=== PATIENT | female | born 1985 | race Caucasian/White ===

== ENCOUNTER 2019-02-07 06:30 | Day surgery (SDC) | payer OTHER ==
[2019-02-04 18:01] VITALS: BMI 34.0
[2019-02-07] MEDS ORDERED: PROPOFOL 20 ML ONE ×3 (07:28)
[2019-02-07] MEDS ORDERED: DEXAMETHASONE SOD PHOSPHATE 4 MG/1 ML VIAL ONE (07:28)
[2019-02-07] MEDS ORDERED: MIDAZOLAM HCL 2 MG/2 ML SINGLE DOSE VIAL ONE (07:28)
--- NOTE | 2019-02-07 08:04 | HP ---
Admitting History and Physical - Admission Chief Complaint: DUB/HMB History of Present Illness: 33yo here for HSC myomectomy. Patient presented to PCP with DUB/ menorrhagia and pain. Sonogram showed 3cm submucosal fibroid Pt declined medical management and wanted to proceed with hysteroscopic myomectomy. 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: Alzheimer's, CVA, Dementia, Migraine, Multiple Sclerosis, Peripheral Neuropathy, Parkinson's, Seizure, Syncope, TIA, Vertigo, Other Cardiovascular: No: AFIB, Aneurysm, Aortic Insufficiency, Aortic Stenosis, CAD, CHF, Deep Vein Thrombosis, HTN, Hyperlipdemia, GA, Mitral Insufficiency, Mitral Stenosis, Murmur, Pulmonary Hypertension, Other Pulmonary: No: Asthma, Bronchitis, Cancer, COPD, O2 Dependent, Pneumonia, Previously Intubated, Pulmonary Embolus, Pulmonary Fibrosis, Sleep Apnea, Other ...LMP: 01/10/19 ...: No Heme/Onc: No: Anemia, B12 Deficiency, Bleeding Disorder, Cancer, Current Chemotherapy, Current Radiation Therapy, Hemochromatosis, Hypercoaguable State, Myeloproliferative Synd, Sickle Cell Disease, Sickle Cell Trait, Thrombocytopenia, Other Infectious Disease: No: AIDS, C-Diff, Herpes Zoster, HIV, MRSA, STD's, Tuberculosis, VREF, Other Psych: No: Addictions, Anxiety, Bipolar, Depression, Panic, Psychosis, Schizophrenia, Other Musculoskeletal: No: Bursitis, Chronic low back pain, Hemiparesis, Hemiplegia, Osteoarthritis, Paraplegia, Other Rheumatology: No: Fibromyalgia, Gout, Lupus, Rheumatoid Arthritis, Sarcoidosis, Vasculitis, Other ENT: No: Allergic Rhinitis, Sinusitis, Other - Past Surgical History Past Surgical History: Yes: None - Smoking History Smoking history: Never smoked Have you smoked in the past 12 months: No - Alcohol/Substance Use Hx Alcohol Use: Yes (socially) - Social History Usual Living Arrangement: Yes: With Significant Other ADL: Independent History of Recent Travel: No Home Medications - Allergies Allergies/Adverse Reactions: Allergies Allergy/AdvReac Type Severity Reaction Status Date / Time No Known Drug Allergies Allergy Verified 02/07/19 06:57 - Home Medications Home Medications: Ambulatory Orders NK [No Known Home Medication] 02/04/19 Review of Systems - Review of Systems Constitutional: denies: No Symptoms, Chills, Diaphoresis, Fever, Lethargy, Loss of Appetite, Malaise, Night Sweats, Unintentional Wgt. Loss, Weakness, Other Eyes: denies: No Symptoms, Blind Spots, Blurred Vision, Double Vision, Eye Pain , Floaters, Photophobia, Recent Change in Vision, Other HENT: denies: No Symptoms, Difficult Swallowing, Ear Discharge, Ear Pain, Epistaxis, Gingival Bleeding, Hearing Loss, Mouth Swelling, Nasal Congestion, Ocular Prosthesis, Throat Pain, Toothache, Ringing in Ears, Other Neck: denies: No Symptoms, Decreased ROM, Lumps, Pain on Movement, Stiffness, Swollen Glands, Tenderness, Other Respiratory: denies: No Symptoms, Cough, Exercise Intolerance, Hemoptysis, Orthopnea, PND, Snoring, SOB, SOB on Exertion, Wheezing, Other Gastrointestinal: denies: No Symptoms, Abdominal Pain, Bloating, Constipation, Diarrhea, Dysphagia, Indigestion, Melena, Nausea, Rectal Bleeding, Vomiting, Vomiting Blood, Other Genitourinary: reports: Vaginal Bleeding Breasts: denies: No Symptoms Reported, See HPI, Breast Implants, Discharge from Nipple, Lumps, Pain, Skin Changes, Other Physical Examination Vital Signs: Vital Signs Temperature 98.2 F 02/07/19 06:55 Pulse Rate 75 02/07/19 06:55 Respiratory Rate 20 02/07/19 06:55 Blood Pressure 125/82 02/07/19 06:55 O2 Sat by Pulse Oximetry (%) 99 02/07/19 06:54 Constitutional: Yes: Well Nourished, No Distress, Calm Eyes: Yes: WNL, Conjunctiva Clear, EOM Intact HENT: Yes: WNL, Atraumatic, Normocephalic Neck: Yes: WNL, Supple, Trachea Midline Cardiovascular: Yes: WNL, Regular Rate and Rhythm Respiratory: Yes: WNL, Regular, CTA Bilaterally Gastrointestinal: Yes: WNL, Normal Bowel Sounds Musculoskeletal: Yes: WNL Extremities: Yes: WNL Edema: No Integumentary: Yes: WNL Neurological: Yes: WNL, Alert, Oriented ...Motor Strength: WNL Psychiatric: Yes: WNL Imaging - Results Ultrasound: Report Reviewed Problem List - Problems (1) Fibroids, submucosal Code(s): D25.0 - SUBMUCOUS LEIOMYOMA OF UTERUS Assessment/Plan 33yo with DUB/HMB here for [facility] myomectomy. Patient declined medical management Nature of the procedure including risk (bleeding, perforation, fluid overload and inability to complete procedure 2/2 excessive fluid absorption) discussed with patient in Romanian. Postoperative expectations reviewed, including pain management (Ibuprofen) All questions answered; consent obtained Proceed to OR for HSC myomectomy Margo Jeronimo MD
[2019-02-07] MEDS ORDERED: KETOROLAC TROMETHAMINE 30 MG/1 ML VIAL ONE (08:25)
[2019-02-07] MEDS ORDERED: ONDANSETRON 4 MG/2 ML VIAL IVPUSH PRN (08:38)
[2019-02-07] MEDS ORDERED: oxyCODONE HCL 5 MG TABLET PO PRN ×2 (08:38)
[2019-02-07] MEDS ORDERED: ACETAMINOPHEN 1000 MG/100 ML VIAL (NON FORMULARY) IVPB ONE (08:42)
[2019-02-07] MEDS ORDERED: LACTATED RINGERS SOLUTION 1,000 ML IV SCH (08:45)
--- NOTE | 2019-02-07 11:06 | OP ---
Operative Note - Note: Operative Date: 02/07/19 Pre-Operative Diagnosis: Dysfunctional Uterine Bleeding Operation: Hysteroscopic Myomectomy, Dilation & Curretage Findings: Anterior Type II submucosal fibroid Normal ostia bilaterally Normal cervix Post-Operative Diagnosis: Same as Pre-op Surgeon: Margo Jeronimo Anesthesia: General Estimated Blood Loss (mls): 50 Drains, Volume Out (mls): 460 (Fluid Deficit) Operative Report Dictated: Yes
[2019-02-07] MEDS ORDERED: oxyCODONE HCL 5 MG TABLET ONE (11:09)
[2019-02-07] MEDS ORDERED: oxyCODONE HCL 5 MG TABLET PO ONE (11:10)
[2019-02-07 12:07] VITALS: BP 116/70; PULSE 70; TEMP 98
--- NOTE | 2019-02-08 16:19 | PATH ---
Surgical Pathology Report Patient Name: NIKI MONTANO [facility]. Rec. #: [id number] /Age/Gender: 1985 (Age: 33) / F Account: [id number] Location: [facility] Taken: 02/07/2019 Received: 02/07/2019 Reported: 02/08/2019 Physicians: Margo Jeronimo Specimen(s) Received A: UTERINE FIBROIDS B: ENDOMETRIAL CURETTINGS Clinical History Dysfunctional uterine bleeding Final Diagnosis A. UTERINE FIBROIDS, HYSTEROSCOPIC MYOMECTOMY: 9 G, FIBROMUSCULAR TISSUE WITH ENTRAPPED ENDOMETRIAL TISSUE CONSISTENT WITH ADENOMYOSIS, FIBROMUSCULAR TISSUE, SECRETORY ENDOMETRIUM, AND SCANT ENDOCERVICAL TISSUE. B. ENDOMETRIAL CURETTINGS, DILATION AND CURETTAGE: SECRETORY ENDOMETRIUM AND FIBROMUSCULAR TISSUE. Electronically Signed Gabby Pickering M.D. Gross Description A. Received in formalin labeled "uterine fibroids," is a 9 g, 6.3 x 5.0 x 0.6 cm aggregate of koenig, irregular to rubbery portions of tissue, consistent with morcellated myoma. The specimen is entirely submitted in 6 cassettes. B. Received in formalin labeled "endometrial curetting," is a 3.5 x 2.2 x 0.3 cm aggregate of koenig-brown soft tissue fragments admixed with blood clot. The formalin is filtered and the specimen is entirely submitted in 2 cassettes. /02/07/2019 saudi/02/07/2019
--- NOTE | 2019-02-14 19:17 | OP ---
DATE OF OPERATION: 02/07/2019 PREOPERATIVE DIAGNOSIS: Dysfunctional uterine bleeding, submucosal fibroid. POSTOPERATIVE DIAGNOSIS: Dysfunctional uterine bleeding, submucosal fibroid. OPERATION: Hysteroscopic myomectomy, dilation and curettage. SURGEON: Wu Jiang MD ANESTHESIA: General. ESTIMATED BLOOD LOSS: 50. FLUID DEFICIT: 460. URINE OUTPUT: Not measured. COMPLICATIONS: None. FINDINGS: Anterior type 2 submucosal fibroid. Normal ostia bilaterally. Normal cervix. DESCRIPTION OF PROCEDURE: After the appropriate consents were signed, the patient was taken to the operating room where general anesthesia was administered. She was placed in dorsal lithotomy position. Surgical field was prepped and draped in the normal sterile fashion. A sterile speculum was entered into the vagina with good visualization of the cervix. The anterior lip of the cervix was grasped with a single-tooth tenaculum. The cervix was then dilated with the Fonseca dilator up to 24 to accommodate the hysteroscope. The hysteroscope until fluid distention was inserted through the cervix, which appeared normal into the endometrial cavity, which was then distended with good visualization of both ostia. In the anterior fundal region, a type 2 submucosal fibroid was noted. Using the resectoscope in several passes, the fibroid was removed. The hysteroscope was removed using the polyp forceps. Pieces of the fibroid tissue were then removed and evacuated from the endometrial canal. Gentle curettage was done in all 4 quadrants to achieve good cry. Hysteroscope was then reintroduced. No bleeding was seen. No further protrusion of the fibroid into the endometrial cavity was noted. Fluid deficit was noted to be 460 mL. No bleeding was seen on the uterine wall. The hysteroscope was then removed. The single-tooth tenaculum was removed off the anterior lip of the cervix and the bite sites were noted to be hemostatic. Speculum was removed. All sponge, lap counts were correct x2. The patient did not receive antibiotics. She was taken from the operating room to the recovery area in stable condition. WU JIANG MD [id number]
== END 2019-02-07 12:07 | disposition home or self-care (01) ==
LOC: JASU-SURG 06:30
PROVIDERS: ATTEND Obstetrics & Gynecology
PROC: 0UDB7ZX Extraction of Endometrium, Via Natural or Artificial Opening, Diagnostic (ICD-10-PCS; 2019-02-07)
PROC: 0UJD8ZZ Inspection of Uterus and Cervix, Via Natural or Artificial Opening Endoscopic (ICD-10-PCS; 2019-02-07)
PROC: 0UB98ZZ Excision of Uterus, Via Natural or Artificial Opening Endoscopic (ICD-10-PCS; principal; 2019-02-07 08:00)
DX: N93.8 Other specified abnormal uterine and vaginal bleeding (principal); D25.0 Submucous leiomyoma of uterus
CPT/HCPCS: 88305-TC; 94760

== ENCOUNTER 2022-03-22 06:16 | Emergency (ER) | payer OTHER ==
[2022-03-22 06:56] VITALS: BP 115/76; PULSE 84; BMI 34.3
[2022-03-22] MEDS ORDERED: ACETAMINOPHEN 325 MG TABLET (FP) PO ONE (07:29)
[2022-03-22] MEDS ORDERED: ACETAMINOPHEN 325 MG TABLET (FP) ONE (07:36)
[2022-03-22 09:31] VITALS: TEMP 98
== END 2022-03-22 09:30 | disposition home or self-care (01) ==
LOC: JER 06:16
DX: J02.9 Acute pharyngitis, unspecified (principal)
CPT/HCPCS: 0241U-QW; 87070; 87651; 87807; 99283-25; C9803-CS; U0003; U0005

== ENCOUNTER 2023-05-13 04:11 | Day surgery (SDC) | payer OTHER ==
[2023-05-11 13:20] VITALS: BMI 33.5
[2023-05-13] MEDS ORDERED: MIDAZOLAM HCL 2 MG/2 ML SINGLE DOSE VIAL ONE (13:23)
[2023-05-13] MEDS ORDERED: ceFAZolin SODIUM 1 GM VIAL IVPB ONE (13:28)
[2023-05-13 14:51] VITALS: RESP 18
[2023-05-13 15:29] VITALS: BP 120/72; PULSE 67; TEMP 98
== END 2023-05-13 15:15 | disposition home or self-care (01) ==
LOC: JASU-SURG 04:11
PROVIDERS: ATTEND Urology
PROC: 0TVC8ZZ Restriction of Bladder Neck, Via Natural or Artificial Opening Endoscopic (ICD-10-PCS; principal; 2023-05-13 13:00)
DX: N39.3 Stress incontinence (female) (male) (principal); N36.42 Intrinsic sphincter deficiency (ISD)
CPT/HCPCS: 51715; L8606; 81025; 94760; C1713

== ENCOUNTER 2025-05-10 07:18 | Day surgery (SDC) | payer OTHER ==
[2025-05-03 13:58] VITALS: BMI 30.9
[2025-05-10] MEDS ORDERED: ONDANSETRON 4 MG/2 ML VIAL IVPUSH PRN (13:49)
[2025-05-10] MEDS ORDERED: LACTATED RINGERS SOLUTION 1,000 ML IV SCH (14:00)
[2025-05-10] MEDS ORDERED: PROPOFOL 20 ML ONE ×2 (14:07→14:23)
[2025-05-10] MEDS ORDERED: MIDAZOLAM HCL 2 MG/2 ML SINGLE DOSE VIAL ONE (14:07)
[2025-05-10] MEDS ORDERED: DEXAMETHASONE SOD PHOSPHATE 4 MG/1 ML VIAL ONE (14:17)
[2025-05-10] MEDS ORDERED: ONDANSETRON 4 MG/2 ML VIAL ONE (14:17)
[2025-05-10] MEDS ORDERED: SUCCINYLCHOLINE CHLORIDE 200 MG/10 ML SYRINGE ONE (14:18)
[2025-05-10] MEDS ORDERED: ceFAZolin SODIUM 1 GM VIAL ONE (14:21)
[2025-05-10 14:54] VITALS: TEMP 97.1
[2025-05-10 16:27] VITALS: BP 115/63; PULSE 65; RESP 20
== END 2025-05-10 15:25 | disposition home or self-care (01) ==
LOC: JASU-SURG 07:18
PROVIDERS: ATTEND Urology
PROC: 3E0K8GC Introduction of Other Therapeutic Substance into Genitourinary Tract, Via Natural or Artificial Opening Endoscopic (ICD-10-PCS; principal; 2025-05-10 11:30)
DX: N39.3 Stress incontinence (female) (male) (principal); R39.14 Feeling of incomplete bladder emptying; Z87.448 Personal history of other diseases of urinary system
CPT/HCPCS: 82962; 94760; L8606